=== PATIENT | female | born 1975 | race Caucasian/White ===

== ENCOUNTER → 2017-02-20 | Outpatient (CLI) | payer BC ==
--- NOTE | 2017-02-21 09:00 | DI ---
XR C-SPINE COMPLETE MIN 4VW,02/20/2017 2:39 PM: Clinical History: Neck pain Previous Exam: None at this facility. Findings: AP, lateral, flexion and extension views of the cervical spine are obtained, and demonstrate anatomic alignment without fractures. Vertebral body height is preserved. Intervertebral disc height is also preserved. The lung apices are clear. There is no evidence of atlantoaxial instability. Impression: Normal cervical spine.
--- NOTE | 2017-02-21 09:00 | DI ---
XR L-SPINE MIN 4 VW,02/20/2017 2:40 PM: Clinical History: None available. Previous Exam: None at this facility. Findings: AP, lateral, flexion and extension views are obtained of the lumbar spine, and demonstrate anatomic a lignment without fractures. Patient is status post cholecystectomy. Vertebral body height is preserved. Intervertebral disc height is also preserved. No pathologic calci fications are seen. Impression: Normal lumbar spine.
== END ==
LOC: ORTHO 16:17
PROVIDERS: ATTEND Physician Assistant
DX: M54.2 Cervicalgia (principal); M54.12 Radiculopathy, cervical region; M54.5 Low back pain; G62.9 Polyneuropathy, unspecified
CPT/HCPCS: 72050; 72110

== ENCOUNTER → 2017-02-20 | Outpatient (CLI) | payer BC ==
[2017-02-20 16:46] LABS: HEMOGLOBIN 14.4 g/dL (12.0-16.0); MEAN CORPUSCULAR HEMOGLOBIN 32.9 PG (27-31); MEAN CORPUSCULAR HGB CONC 35.1 g/dL (33-37); MEAN CORPUSCULAR VOLUME 93.6 FL (81-99); MEAN PLATELET VOLUME 9.6 FL (7.4-12.2); NEUTROPHILS % (AUTO) 57.6 % (50-80); RED BLOOD COUNT 4.38 10^6/uL (4.20-5.40)
[2017-02-20 16:47] LABS: BASOPHILS # (AUTO) 0.09 10*3/UL; BASOPHILS % (AUTO) 1.1 % (0-1); EOSINOPHILS # (AUTO) 0.05 10*3/UL; EOSINOPHILS % (AUTO) 0.6 % (0-8); MONOCYTES # (AUTO) 0.49 10*3/UL (0.3-0.8); NEUTROPHILS # (AUTO) 4.66 10*3/UL; PLATELET MORPHOLOGY COMMENT NORMAL MORPHOLOGY (NORM); RBC MORPHOLOGY COMMENT NORMAL MORPHOLOGY (NORM); WBC MORPHOLOGY COMMENT NORMAL MORPHOLOGY (NORM)
[2017-02-20 17:17] LABS: BLOOD UREA NITROGEN 7 mg/dL (7-22); C-REACTIVE PROTEIN 0.8 mg/dL (0.0-0.9); CALCIUM 9.4 mg/dL (8.7-10.7); EST GLOMERULAR FILTRATION > 60 (>60 ml/min/1.73m(2)); SERUM ALBUMIN 4.3 g/dL (3.5-4.8)
[2017-02-20 17:25] LABS: HEMOGLOBIN A1C 5.37 % (4.2-6.0)
[2017-02-20 17:31] LABS: ERYTHROCYTE SEDIMENTATION RATE 9 MM/HR (0-20)
[2017-02-20 17:42] LABS: VITAMIN D 25-HYDROXY 23.6 NG/ML (30-100)
[2017-02-20 18:00] LABS: FERRITIN 33.7 ng/mL (12.00-336.70)
[2017-02-22 11:01] LABS: A/G RATIO 1.07 (()); ALB PEP SER 3.7 g/dL (3.4-4.7); ALP1 GLOB 0.3 g/dL (0.1-0.3); ALP2 GLOB 1.1 g/dL (0.6-1.0)
== END ==
LOC: LAB 16:29
PROVIDERS: ATTEND Neurological Surgery
DX: G62.9 Polyneuropathy, unspecified (principal); G25.81 Restless legs syndrome; M79.1 Myalgia
CPT/HCPCS: 36415; 80053; 82306; 82607; 82728; 82746; 83036; 84155; 84165; 84443; 85025; 85652; 86140